=== PATIENT | male | born 1960 | race Native Hawaiian/Other Pacific Islander ===

== ENCOUNTER 2018-05-22 09:13 | Emergency (ER) | payer OTHER ==
[~2018-05-22] VITALS: Ht 175.3 cm; Wt 99.8 kg
[2018-05-22 09:15] VITALS: TEMP 99.1
[2018-05-22] MEDS ORDERED: KETO10TA34 PO (09:43)
[2018-05-22 09:55] LABS: PLATELET COUNT 301 K/uL (142-355)
[2018-05-22 15:40] VITALS: BP 117/82
== END 2018-05-22 15:40 | disposition home or self-care (01) ==
LOC: ED 09:13
PROVIDERS: Internal Medicine
DX: N13.9 Obstructive and reflux uropathy, unspecified (principal); N20.0 Calculus of kidney; N17.9 Acute kidney failure, unspecified
CPT/HCPCS: 36415; 80053; 81000; 85027; 96374; 96375; 99284; J2175; J2550; Q9963

== ENCOUNTER 2018-12-27 08:56 | Emergency (ER) | payer OTHER ==
[~2018-12-27] VITALS: Ht 175.3 cm; Wt 108.9 kg
[~2018-12-27 08:56] MED LIST: KETO10TA34 PO
[2018-12-27] MEDS ORDERED: LIPITOR20 MG PO (09:24)
[2018-12-27] MEDS ORDERED: MICARDIS80 MG PO (09:25)
[2018-12-27] MEDS ORDERED: AMLODIPINE BESYLATE PO (09:27)
[2018-12-27 11:52] VITALS: BP 150/81
== END 2018-12-27 11:53 | disposition home or self-care (01) ==
LOC: ED 08:56
DX: M54.32 Sciatica, left side (principal); S39.012A Strain of muscle, fascia and tendon of lower back, initial encounter; X50.9XXA Other and unspecified overexertion or strenuous movements or postures, initial encounter
CPT/HCPCS: 96372; 99283; J1885

== ENCOUNTER 2019-01-14 10:07 | Outpatient (CLI) | payer OTHER ==
[~2019-01-14 10:07] MED LIST changes: +AMLODIPINE BESYLATE PO; +LIPITOR20 MG PO; +MICARDIS80 MG PO
== END 2019-01-14 23:59 | disposition home or self-care (01) ==
LOC: MRI 10:07
DX: M54.17 Radiculopathy, lumbosacral region (principal)

== ENCOUNTER 2020-12-20 15:28 | Emergency (ER) | payer OTHER ==
[~2020-12-20] VITALS: Ht 175.3 cm; Wt 113.4 kg
[2020-12-20 15:36] VITALS: TEMP 98
[2020-12-20 16:09] LABS: PLATELET COUNT 297 K/uL (142-355)
[2020-12-20 16:16] LABS: POTASSIUM 4.3 mmol/L (3.6-5.2)
[2020-12-20 17:55] VITALS: BP 147/80
== END 2020-12-20 17:55 | disposition home or self-care (01) ==
LOC: ED 15:28
PROVIDERS: Family Medicine
DX: N20.2 Calculus of kidney with calculus of ureter (principal); Z87.442 Personal history of urinary calculi
CPT/HCPCS: 80053; 85027; 96360; 96375; 99284; J1885; J2175; J2550

== ENCOUNTER 2020-12-27 17:39 | Emergency (ER) | payer OTHER ==
[~2020-12-27] VITALS: Ht 175.3 cm; Wt 113.4 kg
[2020-12-27 17:47] VITALS: BP 154/95; TEMP 98.9
== END 2020-12-27 18:23 | disposition home or self-care (01) ==
LOC: ED 17:39
DX: S80.12XA Contusion of left lower leg, initial encounter (principal); W22.8XXA Striking against or struck by other objects, initial encounter; Y92.89 Other specified places as the place of occurrence of the external cause
CPT/HCPCS: 99283